=== PATIENT | male | born 1990 | race Caucasian/White ===

== ENCOUNTER 2017-10-15 17:08 | Emergency (ER) | payer SELFPAY ==
--- NOTE | 2017-10-15 19:07 | RAD ---
LEFT FOOT THREE VIEWS: 10/15/17 No acute fracture was seen. There has been a prior ORIF of the talus. The bony relationships seem nor mal. IMPRESSION: No acute findings. POS: HOME
--- NOTE | 2017-10-15 20:07 | RAD ---
LEFT ANKLE THREE VIEWS 10/15/17 Two screws are seen as part of an ORIF of the talus. There is significant soft tissue swelling around the joint, more medially than laterally. No acute fracture was seen. The postoperative appearance wa s unremarkable. There is some calcification or bony flecks along side the medial malleolus, possibly from ligamentous injury. IMPRESSION: Soft tissue swelling but no acute findings. POS: HOME
== END 2017-10-15 18:30 | disposition home or self-care (01) ==
LOC: BURERS 17:08
DX: M25.572 Pain in left ankle and joints of left foot (principal); F17.220 Nicotine dependence, chewing tobacco, uncomplicated